=== PATIENT | male | born 1950 | race Caucasian/White ===

== ENCOUNTER 2021-07-24 15:53 | Emergency (ER) | payer MEDICARE, MEDICAID ==
[2021-07-24] MEDS ORDERED: RT-ALBUTEROL/IPRATROPIUM 3 ML (DUONEB) VIAL INH ONE (16:15)
--- NOTE | 2021-07-24 16:17 | ED General ---
General Stated Complaint: TRACH ISSUES Source of Information: Patient Exam Limitations: No Limitations History of Present Illness Date Seen by Provider: Jul 24, 2021 Time Seen by Provider: 16:15 Initial Comments To ER by EMS from residential with reports of shortness of breath. 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 He cannot elaborate on what kind. They noticed a more noisy tracheostomy sound today with breathing and attempted to suction at the residential. They could not advance the suction catheter beyond about 8 cm. He is not on any humidified air Timing/Duration: 1-2 Days Severity: Moderate Associated Systoms: Denies Symptoms Allergies and Home Medications Allergies Coded Allergies: No Known Drug Allergies (Unverified , 07/24/21) Patient Home Medication List Home Medication List Reviewed: Yes Review of Systems Review of Systems Constitutional: see HPI EENTM: see HPI Respiratory: see HPI, short of breath Cardiovascular: no symptoms reported Genitourinary: no symptoms reported Musculoskeletal: no symptoms reported Skin: no symptoms reported Psychiatric/Neurological: No Symptoms Reported Hematologic/Lymphatic: No Symptoms Reported Immunological/Allergic: no symptoms reported Physical Exam Vital Signs Capillary Refill : Height, Weight, BMI Height: '" Weight: lbs. oz. kg; BMI Method: General Appearance: No Apparent Distress, WD/WN, Other (Oxygen is 95% room air. Noisy trach sounds. Attempted to suction and I to cannot get the 14 Serbian suction catheter to pass beyond about 8 cm. Respiratory therapy came down, removed his tracheostomy tube and still could not get the suction catheter to advance beyond 8 cm. Would suspect a hardened mucous plug as he is not on any humidification at the residential.) HEENT: PERRL/EOMI, TMs Normal Neck: Full Range of Motion, Normal Inspection Respiratory: Normal Breath Sounds, No Accessory Muscle Use, No Respiratory Distress Gastrointestinal: Normal Bowel Sounds, Non Tender, Soft Extremity: Normal Capillary Refill, Normal Inspection Neurologic/Psychiatric: Alert, Oriented x3 Skin: Normal Color, Warm/Dry Progress/Results/Core Measures Suspected Sepsis SIRS Temperature: Pulse: Respiratory Rate: Blood Pressure / Mean: Results/Orders My Orders Orders - ALONSO QUINTANA APRN Ct Neck (Soft Tissue) Wo (07/24/21 16:07) Chest 1 View, Ap/Pa Only (07/24/21 16:07) Albuterol/Ipra Inhalation Soln (Duoneb I (07/24/21 16:15) Svn Small Volume Nebulizer (07/24/21 16:11) Vital Signs/I&O Capillary Refill : Departure Communication (Admissions) 1636-with RT we removed his tracheostomy tube, he then coughed up a large about 1.5 cm in width by 2.5 cm in length hard/dried mucous plug with immediate improvement in his work of breathing Impression Primary Impression: Mucus clot in bronchi Disposition: 01 HOME, SELF-CARE Condition: Stable Departure-Patient Inst. Decision time for Depature: 16:48 Referrals: UNKNOWN (PCP) Primary Care Physician Patient Instructions: How to Care for a Tracheostomy Add. Discharge Instructions: 1. Return to ER for any concerns 2. Antibiotic as directed 3. Humidified air as directed. Scripts Cefdinir (Cefdinir) 300 Mg Capsule 300 MG PO BID, #10 CAP Prov: ALONSO QUINTANA MECHANICAL TECHNOLOGIST 07/24/21 ALONSO QUINTANA MECHANICAL TECHNOLOGIST Jul 24, 2021 16:17
[2021-07-24] MEDS ORDERED: CEFD300C3 PO (16:49)
[2021-07-24 17:00] VITALS: BP 114/58
--- NOTE | 2021-07-24 17:04 | Diagnostic Imaging Report ---
INDICATION: Shortness of air. TIME OF EXAM: 4:39 PM. COMPARISON: No prior studies are available for comparison. FINDINGS: Heart size is normal. There appears to be some minimal infiltrate or atelectasis in both lung bases. There is some right perihilar scarring or atelectasis. Upper lung puente are otherwise clear. No significant effusion or pneumothorax is seen. IMPRESSION: Bibasilar infiltrates or atelectasis as well as mild right perihilar atelectasis or scarring. Dictated by: Dictated on workstation # [id number]
== END 2021-07-24 17:00 | disposition home or self-care (01) ==
LOC: EDUNIT# 15:53 → ER 15:54
DX: J98.09 Other diseases of bronchus, not elsewhere classified (principal)
CPT/HCPCS: 71045

== ENCOUNTER 2021-07-25 23:39 | Emergency (ER) | payer MEDICARE, MEDICAID ==
[~2021-07-25] VITALS: Ht 183 cm; Wt 86.0 kg
[~2021-07-25 23:39] MED LIST: CEFD300C3 PO
--- NOTE | 2021-07-25 23:53 | ED Respiratory ---
General Stated Complaint: SOA Source: patient, EMS Exam Limitations: no limitations History of Present Illness Date Seen by Provider: Jul 25, 2021 Time Seen by Provider: 23:44 Initial Comments Patient to the ER by EMS [facility] with chief complaint of shortness of air today. He has been suction the last 2 days per nursing report from his recurrent rehab and not producing anything. He had come out Monday, 3 days ago and be suctioned. Nursing staff states they do not have saline bullets so they have been suctioning him without saline. Patient not endorsing any fevers chills, nausea vomiting diarrhea or rash. He has been vaccinated with 2 doses for COVID-19 as well as had his influenza shot. He got his trach placed 2-1/2 weeks ago secondary to throat cancer. He is communicating via his pen and tablet. Allergies and Home Medications Allergies Coded Allergies: No Known Drug Allergies (Unverified , 07/24/21) Patient Home Medication List Home Medication List Reviewed: Yes Cefdinir (Cefdinir) 300 Mg Capsule, 300 MG PO BID Prescribed by: ALONSO QUINTANA on 07/24/21 9039 [Saline Bullet] 0.9% , 3 ML ENDO Q1HR PRN for SHORTNESS OF BREATH Prescribed by: CASPER WAGONER on 07/26/21 0036 Review of Systems Review of Systems Constitutional: No chills, No diaphoresis EENTM: No ear discharge, No hearing loss, No ear pain Respiratory: No cough, No short of breath Cardiovascular: No chest pain, No edema Gastrointestinal: No abdominal pain, No nausea, No vomiting Genitourinary: No discharge, No dysuria Musculoskeletal: No back pain, No joint pain All Other Systems Reviewed Negative Unless Noted: Yes Past [id number]-[id number]-[id number] Hx Patient Social History Tobacco Use?: No Use of E-Cig and/or Vaping dev: No Physical Exam Vital Signs - First Documented 07/25/21 07/25/21 23:43 23:45 Temp 35.9 Pulse 72 Resp 18 B/P (MAP) 119/72 (88) Pulse Ox 97 O2 Delivery Trach Collar O2 Flow Rate 4.00 Capillary Refill : Height: '" Weight: lbs. oz. kg; BMI Method: General Appearance: WD/WN, no apparent distress Eyes: Bilateral Eye Normal Inspection, Bilateral Eye PERRL, Bilateral Eye EOMI HEENT: PERRL/EOMI, pharynx normal Neck: full range of motion, supple, normal inspection Respiratory: lungs clear, normal breath sounds, no respiratory distress (98% on air entrainment device 28%), no accessory muscle use Cardiovascular: normal peripheral pulses, regular rate, rhythm Gastrointestinal: normal bowel sounds, non tender, soft Neurologic/Psychiatric: alert, normal mood/affect, oriented x 3 Skin: normal color, warm/dry Progress/Results/Core Measures Suspected Sepsis SIRS Temperature: Pulse: Respiratory Rate: Blood Pressure / Mean: Results/Orders My Orders Orders - CASPER WAGONER Chest 1 View, Ap/Pa Only (07/25/21 12:45) Vital Signs/I&O 07/25/21 07/25/21 07/26/21 23:43 23:45 01:07 Temp 35.9 Pulse 72 69 Resp 18 B/P (MAP) 119/72 (88) 111/68 Pulse Ox 97 98 O2 Delivery Trach Collar Trach Collar Trach Collar O2 Flow Rate 4.00 Capillary Refill : Progress Note #1: Time: 23:52 Progress Note Respiratory therapy down to do deep suctioning. Progress Note #2: Time: 00:32 Progress Note Respiratory therapy was able to suction out a large mucous plug and the patient states he feels much better. Vital signs are still normal. Chest x-ray was performed. We will send some nasal saline back with him. Spoke to his son Shalom who says he is coming back home tomorrow so we encouraged him to make sure they have nasal saline and discussed appropriate way to do suctioning. Diagnostic Imaging Diagonstic Imaging: Xray Plain Films/CT/US/NM/MRI: chest Comments Unchanged from previous x-ray. [facility] [place], [place] NAME: MANDEEPYASMEEN Elly [facility] REC#: [id number] PT STATUS: DEP ER : 1950 PHYSICIAN: CASPER WAOGNER MD ADMIT DATE: 07/25/21/ER Signed Date of Exam:07/25/21 CHEST 1 VIEW, AP/PA ONLY Indication: Shortness of breath Portable chest 11:58 PM There are emphysematous changes in the lungs. There is some bibasilar atelectasis. There are no effusions or pneumothoraces. Heart size and pulmonary vascularity are normal. IMPRESSION: COPD with bibasilar infiltrate/atelectasis. No significant change compared to prior exam dated 07/24/2021. Dictated by: Dictated on workstation # [id number] Dict: 07/26/21518 Trans: 07/26/21519 TCB [id number] Interpreted by: NAZ KEITH MD Electronically signed by: NAZ KEITH MD 07/26/21519 Reviewed: Reviewed by Me Departure Impression Primary Impression: Mucus clot in bronchi Disposition: HOME, SELF-CARE Condition: Stable Departure-Patient Inst. Decision time for Depature: 00:34 Referrals: NO,LOCAL PHYSICIAN (PCP/Family) Primary Care Physician Patient Instructions: Tracheotomy (DC) Add. Discharge Instructions: Obtain respiratory saline and instill 4 to 5 drops of saline waiting 10 seconds before suctioning aggressively with deep suctioning. Return to the ER for worsening symptoms. Scripts [Saline Bullet] 0.9% No Conflict Check 3 ML ENDO Q1HR PRN for SHORTNESS OF BREATH, #50 EA 0 Refills Prov: CASPER WAGONER 07/26/21 CASPER WAGONER Jul 25, 2021 23:53
[2021-07-26] MEDS ORDERED: [UNRECOGNIZED DRUG - OTHER] ENDO (00:36)
[2021-07-26 01:07] VITALS: BP 111/68
--- NOTE | 2021-07-26 05:21 | Diagnostic Imaging Report ---
Indication: Shortness of breath Portable chest 11:58 PM There are emphysematous changes in the lungs. There is some bibasilar atelectasis. There are no effusions or pneumothoraces. Heart size and pulmonary vascularity are normal. IMPRESSION: COPD with bibasilar infiltrate/atelectasis. No significant change compared to prior exam dated 07/24/2021. Dictated by: Dictated on workstation # [id number]
== END 2021-07-26 00:47 | disposition home or self-care (01) ==
LOC: EDUNIT# 23:39 → ER 23:41
DX: J98.09 Other diseases of bronchus, not elsewhere classified (principal)
CPT/HCPCS: 71045